=== PATIENT | female | born 1980 | race Caucasian/White ===

== ENCOUNTER 2021-07-22 10:12 | Emergency (ER) | payer BC, SELFPAY ==
--- NOTE | ~2021-07-22 | XR_ITS ---
EXAMINATION: XR chest 2V DATE: 07/22/2021 11:15 INDICATION: Shortness of breath, cough and fever TECHNIQUE: PA and lateral views of the chest were obtained. COMPARISON: Chest radiograph dated 05/16/14 FINDINGS: Mild perihilar bronchial wall thickening. No focal airspace opacities, pulmonary edema, pleural effus ion or pneumothorax. The cardiomediastinal silhouette is normal. Visualized bones and soft tissues ar e unremarkable. Cholecystectomy clips in right upper quadrant. IMPRESSION: 1. Mild perihilar bronchial wall thickening without evident airspace opacities which could be seen wi th bronchitis or reactive airway disease/asthma. Reviewed, dictated and finalized at location A. SVERSE ABDOMINAL MUSCLE NURSE IMPRESSION: 1. Mild perihilar bronchial wall thickening without evident airspace opacities which could be seen with bronchitis or reactive airway disease/asthma.
--- NOTE | 2021-07-22 10:15 | ECG_ITS ---
Measurements Intervals [place] Rate: 76 P: 38 WV: 135 QRS: 1 QRSD: 99 T: 28 QT: 426 QTc: 480 Interpretive Statements SINUS RHYTHM WITH SINUS ARRHYTHMIA BORDERLINE T WAVE ABNORMALITY- INFERIOR LEADS BASELINE ARTIFACT- I, II, III, AVR, AVL, AVF BORDERLINE ECG Electronically Signed On 07-22-2021 10:31:53 PHYSICAL SECURITY MANAGER by Edu Wheeler D.O.
[2021-07-22 10:19] VITALS: BP 113/77; PULSE 84; RESP 23; O2SAT 100
[2021-07-22 10:20] VITALS: BP 113/77; PULSE 85; PULSE 88; RESP 23; RESP 24; TEMP 36.6; O2SAT 100
[2021-07-22 10:39] LABS: Basophils Percent Auto 0.9 % (0.2-1.2); Eosinophils Percent Auto 0.7 % (0-4.4); Hematocrit 38.9 % (37.0-47.0); Hemoglobin 13.5 g/dL (12.0-15.0); Immature Granulocyte Absolute 0.01 K/mm3 (0.00-0.031); Immature Granulocyte Percent A 0.2 % (0-0.5); Lymphocytes Absolute Auto 1.57 K/mm3 (0.9-3.2); Lymphocytes Percent Auto 35.5 % (18.3-44.2); Mean Corpuscular HGB Conc 34.7 g/dl (32-36); Mean Corpuscular Hemoglobin 28.9 pg (26-34); Mean Corpuscular Volume 83.3 fl (80-100); Mean Platelet Volume 10.2 fl (7.4-10.4); Monocytes Absolute Auto 0.3 K/mm3 (0.1-0.6); Monocytes Percent Auto 6.8 % (2.6-8.5); Neutrophils Absolute Auto 2.5 K/mm3 (1.3-6.7); Neutrophils Percent Auto 55.9 % (45.5-73.1); Platelet Count Result 273 k/mm3 (150-375); Red Blood Count 4.67 M/mm3 (4.2-5.4); Red Cell Distribution Width 12.1 % (11.5-14.5); White Blood Count 4.4 K/mm3 (4.5-10.0)
[2021-07-22 10:51] LABS: Alanine Aminotransferase 27 U/L (4-35); Alkaline Phosphatase 52 U/L (38-126); Anion Gap 17 mmol/L (8-16); Aspartate Amino Transferase 32 U/L (14-36); Bilirubin,Total 0.8 mg/dL (0.2-1.3); Blood Urea Nitrogen 11 mg/dL (7-17); Calcium 10.5 mg/dL (8.4-10.2); Carbon Dioxide 16 mmol/L (22-30); Chloride 104 mmol/L (98-107); Estimated CRCL calculation 64 ml/min; Estimated Glomerular Filt Rate > 60; Glucose 106 mg/dL (65-110); Potassium 3.4 mmol/L (3.4-5.0); Sodium 137 mmol/L (137-145)
[2021-07-22] MEDS: ALPRAZolam (*CRX) 0.5 MG TABLET PO (11:00)
--- NOTE | 2021-07-22 11:02 | PC.NURSE ---
Michelle carvajal verbal order change IM to IV solu-medrol
[2021-07-22] MEDS: methylPREDNISolone SOD SUCC 125 MG VIAL IV PUSH (11:03)
[2021-07-22 11:04] LABS: D Dimer 0.27 ug/mL (<0.48)
[2021-07-22 11:34] VITALS: PULSE 70; RESP 20
[2021-07-22] MEDS: ALBUTEROL SULFATE NEB 2.5 MG/0.5 ML INH 5 MG INHALATION (11:34)
[2021-07-22] MEDS: IPRATROPIUM BR 0.02% INH SOLN 0.5 MG/2.5 ML VIAL INHALATION (11:34)
[2021-07-22 11:44] VITALS: PULSE 69; RESP 18
[2021-07-22 12:28] LABS: Troponin I < 0.012 ng/mL (0.000-0.034)
--- NOTE | 2021-07-22 13:29 | ED.GENADULT ---
HPI - General Adult General Chief complaint: Shortness of Breath/Dyspnea Stated complaint: short of breath Time Seen by Provider: 07/22/21 10:25 Source: patient Mode of arrival: ambulatory Limitations: no limitations History of Present Illness HPI narrative: Patient is a 41-year-old female presenting with chief complaint of sinus congestion and cold like symptoms that began again chest congestion and feeling of shortness of breath today. Patient reports that she feels that she is having trouble breathing and is giving her anxiety. Patient reports feeling a pressure like sensation to her throat which scares her. Patient denies any rash or hives. Patient denies a history of asthma but states that she was given a rescue inhaler when she was seen in clinic on Wednesday. Patient reports that she was tested for Covid in the clinic as well which came back negative on Wednesday. Patient that she was swabbed for Covid in the urgent care today results are pending. Patient denies productive cough. She reports sometimes a dry cough seems to trigger her feelings of shortness of breath. Related Data Allergies Allergy/AdvReac Type Severity Reaction Status Date / Time Penicillins Allergy Unknown Unknown Verified 07/22/21 10:23 Review of Systems Review of Systems: CONSTITUTIONAL: Denies fever, chills, or sweats. EYES: Denies visual changes, redness, or discharge. ENT: Denies rhinorrhea, congestion, sore throat, or otalgia. CARDIOVASCULAR: Denies chest pain, palpitations, or edema. RESPIRATORY: Reports cough and dyspnea. GASTROINTESTINAL: Denies abdominal pain, nausea, vomiting, or diarrhea. GENITOURINARY: Denies dysuria or hematuria. SKIN: Denies rash or itching. MUSCULOSKELETAL: Denies back pain, joint pain, or myalgia. NEUROLOGIC: Denies headache, numbness, dizziness, or weakness. PSYCHIATRIC: Denies anxiety or depression. [facility] Past Medical History Medical History Asthma Rectocele Vaginal delivery Surgical History Surgical History History of breast surgery History of cholecystectomy Previous section Family History Family History Mother Hypertension Family history of malignant neoplasm of breast in first degree relative Family history of cardiac disorder Father Hypertension Other Diabetes mellitus Social History Social History Smoking status: Never smoker Second hand tobacco smoke exposure: No Alcohol intake: never Exam Narrative: GENERAL: Well-appearing, well-nourished, and in no acute distress. HEAD: Normocephalic, atraumatic. EYES: PERRLA and EOMI. ENT: Nares clear, no rhinorrhea or epistaxis. Mucous membranes moist. Oropharynx without tonsillar hypertrophy exudate or other lesions. Bilateral TMs pearly webber nonbulging. Airway is patent without signs of obstruction or erythema or lesions. NECK: Supple. No adenopathy or masses. No carotid bruits or JVD CHEST: Clear to auscultation. Patient hyperventilating. No wheezes rales or rhonchi. Patient's lung sounds are clear patient is moving air. Upper airway sounds noted. Patient is satting 100% on room air. HEART: Regular rate and rhythm. No murmur heard. Normal peripheral pulses. EXTREMITIES: Normal range of motion. No edema. SKIN: Warm, dry, no rash. NEURO: No focal deficits. Alert and oriented x3. PSYCH: Obviously anxious and hyperventilating. Course Vital Signs Vital signs: Vital Signs Pulse Rate 84 07/22/21 10:19 Respiratory Rate 23 H 07/22/21 10:19 Blood Pressure 113/77 07/22/21 10:19 Pulse Oximetry 100 07/22/21 10:19 Temperature 97.8 F 07/22/21 10:20 Pulse Rate 78 07/22/21 14:27 Respiratory Rate 17 07/22/21 14:27 Blood Pressure 115/70 07/22/21 14:27 Pulse Oximetry 100 07/22/21 14:27
[2021-07-22] MEDS: diphenhydrAMINE HCl INJ 50 MG/ML VIAL 25 MG IV PUSH (14:04)
[2021-07-22 14:27] VITALS: BP 115/70; PULSE 78; RESP 17; O2SAT 100
== END 2021-07-22 14:10 | disposition home or self-care (01) ==
PROVIDERS: Physician Assistant; Emergency Provider Emergency Medicine; PCP Internal Medicine
DX: F41.9 Anxiety disorder, unspecified (principal); J45.909 Unspecified asthma, uncomplicated
CPT/HCPCS: 36415; 71046; 80053; 84484; 85025; 85380; 93005; 94640; 96374; 96375; 99284; A9270; J1200; J2930

== ENCOUNTER 2021-11-20 15:21 | Outpatient (CLI) | payer BC, SELFPAY ==
--- NOTE | ~2021-11-20 | US_ITS ---
EXAMINATION: US pelvic complete w TV DATE: 11/20/2021 16:07 INDICATION: Pelvic and perineal pain TECHNIQUE: Multiple transabdominal and endovaginal sonographic images of the pelvis were obtained. COMPARISON: 05/12/2012 FINDINGS: The uterus measures 8.6 x 4.3 x 4.5 cm. The endometrial complex measures 2 mm. There is que stionable increased vascularity of the endometrium. The right ovary measures 3.2 x 3.2 x 2.1 cm. The left ovary measures 3.0 x 1.8 x 1.9 cm. There is normal vascular flow in the ovaries. There is no aram e fluid in the pelvis. IMPRESSION: 1. Questionable increased vascularity of the non thickened endometrium. Reviewed, dictated and finalized at location B.
[2021-11-20 18:04] LABS: T4 Thyroxine 9.52 ug/dL (5.53-11.0)
[2021-11-23 04:21] LABS: FSH 8.8 mIU/mL (***); LH 3.5 mIU/mL (***)
== END 2021-11-20 15:22 | disposition home or self-care (01) ==
LOC: ANHIMG 15:24
PROVIDERS: PCP Internal Medicine; Visit Provider Obstetrics & Gynecology
DX: N92.6 Irregular menstruation, unspecified (principal); R10.2 Pelvic and perineal pain
CPT/HCPCS: 36415; 76830; 76856; 83001; 83002; 84436; 84443